=== PATIENT | female | born 1965 | race Two or more races ===

== ENCOUNTER 2022-11-03 13:40 | Emergency (ER) | payer OTHER ==
[~2022-11-03] VITALS: Ht 170.2 cm; Wt 58.5 kg
[~2022-11-03 13:40] MED LIST: ABILIFY5 MG; ADVAIR 100-501 EACH; ALPRAZOLAM1 MG PO; ELAVIR PO; ORPH100T PO; SPIRIVA
== END 2022-11-03 18:11 | disposition home or self-care (01) ==
LOC: ER 13:40
DX: R10.32 Left lower quadrant pain (principal); M06.8A Other specified rheumatoid arthritis, other specified site; Z88.0 Allergy status to penicillin; Z88.6 Allergy status to analgesic agent; Z88.2 Allergy status to sulfonamides; N20.0 Calculus of kidney; Z20.822 Contact with and (suspected) exposure to COVID-19